=== PATIENT | male | born 1970 | race African-American/Black ===

== ENCOUNTER 2019-10-29 13:24 | Emergency (ER) | payer OTHER ==
[~2019-10-29] VITALS: Ht 182.9 cm; Wt 81.7 kg
[2019-10-29 13:32] VITALS: BP 116/77
[2019-10-29 13:59] LABS: BE 1.2 mmol/L (-2 to +3); PCO2 49.5 mmHg (35.0-45.0); pH 7.362 (7.340-7.450)
[2019-10-29 14:00] LABS: ABSOLUTE EOSINOPHILS 0.1 thou/uL (0.0-0.7); ABSOLUTE LYMPHOCYTES 1.3 thou/uL (0.8-5.3); ABSOLUTE MONOCYTES 0.6 thou/uL (0.0-1.2); ABSOLUTE NEUTROPHILS 4.2 thou/uL (1.6-8.1); BASOPHILS 0.5 %; LYMPHOCYTES 20.7 %; MCH 32.1 pg (26.0-34.0); MCHC 34.2 g/dL (28.0-37.0); MPV 7.5 fl. (7.2-11.1); NUCLEATED RBCS 0 /100WBC; PLATELET COUNT* 252 thou/uL (150-400); POLYS 66.8 %; RBC 4.68 mil/uL (4.50-6.00); RDW-CV 14.8 % (10.5-14.5); WBC 6.3 thou/uL (4.0-11.0)
[2019-10-29 14:09] LABS: APTT 25.9 Seconds (25.0-31.3); CALCIUM 8.1 mg/dL (8.5-10.1); INR 1.1; POTASSIUM 3.8 mmol/L (3.5-5.1); PROTIME 11.4 Seconds (9.20-11.50)
[2019-10-29 14:23] LABS: ALBUMIN 3.4 g/dL (3.4-5.0); CK-MB MASS 1.7 ng/mL (<0.5-3.6); TOTAL BILIRUBIN 0.9 mg/dL (<0.1-1.0)
[2019-10-29 14:55] LABS: ACETAMINOPHEN < 2 ug/mL (10-30); ALCOHOL < 10 mg/dL (<10); SALICYLATE < 2.8 mg/dL (2.8-20.0)
[2019-10-29 15:11] VITALS: BP 124/89
[2019-10-29 15:12] LABS: URINE BILIRUBIN NEGATIVE (Negative); URINE BLOOD 3+ (Negative); URINE CLARITY CLEAR; URINE COLOR YELLOW; URINE GLUCOSE-RANDOM NEGATIVE (Negative); URINE KETONES NEGATIVE (Negative); URINE LEUKOCYTES-REFLEX NEGATIVE (Negative); URINE NITRITE-REFLEX NEGATIVE (Negative); URINE PROTEIN TRACE (Negative); URINE UROBILINOGEN 0.2 E.U./dl (0.2-1.0)
[2019-10-29 15:21] LABS: AMP/METHAMP POSITIVE (Negative); BARBITURATES Negative (Negative); BENZODIAZEPINES POSITIVE (Negative); COCAINE Negative (Negative); METHADONE Negative (Negative); OPIATES Negative (Negative); PCP POSITIVE (Negative); THC POSITIVE (Negative)
[2019-10-29 15:39] LABS: BACTERIA-REFLEX 1-9 Few /HPF (None Seen); CASTS None Seen /LPF (None Seen); CRYSTALS None Seen /LPF (None Seen); SQUAMOUS 0-3 Few /LPF (0-3); URINE RBC >20 Many /HPF (0-2); URINE WBC-REFLEX 0-5 Rare /HPF (0-5)
--- NOTE | 2019-10-29 22:00 | NUR ---
REPORT RECEIVED AND CARE ASSUMED AT THIS TIME. SPOKE WITH PATIENT ABOUT PLAN OF CARE, PT STATES "GET ME THE FUCK OUT OF HERE". PT VERY AGITATED AND CURSING REPEATEDLY AT NURSING STAFF. PT STATES "CALL MY MOM. GET ME THE FUCK OUT OF HERE". PT GIVEN PERSONAL BELONGINGS, HE STATES HE WILL CALL HIS MOTHER. PT REFUSING TO ANSWER ANY QUESTIONS ABOUT PAST MEDICAL HISTORY/ALLERGIES ETC. PT VERBALLY ABUSIVE TO STAFF. PT REFUSING LOVANOX INJECTION AT THIS TIME, ATTEMPTED TO EXPLAIN NEED TO PATIENT AND HE CONTINUED TO BE VERBALLY ABUSIVE.
[2019-10-29 22:53] VITALS: BP 124/89
--- NOTE | 2019-10-29 22:55 | NUR ---
PT REFUSING INPATIENT ADMISSION, DR TOLEDO SPOKE WITH PATIENT AND STATES HE CAN LEAVE AGAINST MEDICAL ADVICE. PT INFORMED OF RISKS OF LEAVING WITH ADMISSION AND FOLLOW UP, PT VERBALIZES UNDERTANDING AND STATES REPEATEDLY THAT HE NEEDS TO GO. PT CALLED FAMILY AND STATES THEY WILL BE HERE TO PICK HIM UP. 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 DR TOLEDO SPOKE WITH DR DIAZ ABOUT PT REFUSING ADMISSION. PT IS A/O X4, GCS OF 15. STANDS WITH STRONG STEADY GAIT. DRESSES SELF WITH ASSISTANCE. PT THEN AMBULATED TO ED NURSE STATION AND ASKED FOR AMA FORM. FORM SIGNED BY PATIENT AT THIS TIME.
--- NOTE | 2019-10-30 09:00 | EKG ---
[place] [address] ELECTROCARDIOGRAM REPORT Name: SKYLAR RAMSEY Room: [facility]#: [id number] Admission: 10/29/19 Attend Phys: Discharge: 10/29/19 Date of : 66 Date of Service: 10/29/19 1347 Report #: [id number] THIS REPORT FOR: //name// [facility] ED Test Date: 2019-10-29 Test Time: 13:47:27 Pat Name: SKYLAR RAMSEY Department: Room: [facility] Gender: Director Of Hospitality: [facility] : 1970 Requested By: Jamir Barron Order Number: [id number] MD: Erlin Acharya Measurements Intervals [place] Rate: 68 P: 75 [place]: 152 QRS: 69 QRSD: 96 T: 58 QT: 427 QTc: 455 Interpretive Statements Sinus rhythm No previous ECG available for comparison Electronically Signed On 10-30-2019 8:59:42 CDT by Erlin Acharya [email or web address] <ELECTRONICALLY SIGNED> By: Erlin Acharya MD, [facility] 10/30/19 0859 1347 46 Erlin Acharya MD, FACC /EPI
== END 2019-10-29 22:55 | disposition still patient (30) ==
LOC: M.ERS 13:24 → M.TBA-ER 15:11 → M.ERS 15:11
PROVIDERS: Family Medicine
DX: R41.82 Altered mental status, unspecified (principal)